=== PATIENT | male | born 1950 | race Caucasian/White ===

== ENCOUNTER 2023-11-18 08:29 | Emergency (ER) | payer MEDICARE, OTHER, SELFPAY ==
[2023-11-18 08:33] VITALS: BP 124/65; PULSE 100; RESP 16; TEMP 35.9; O2SAT 95
[2023-11-18 09:20] LABS: Abs Immature Grans 0.05 10^3/uL (0.0-0.06); Absolute Basophil Count 0.06 10^3/uL (0.0-0.2); Absolute Eosinophil Count 0.05 10^3/uL (0.0-0.7); Absolute Lymphocyte Count 0.71 10^3/uL (1.2-3.4); Absolute Monocyte Count 0.86 10^3/uL (0.1-0.8); Absolute Neutrophil Count 6.17 10^3/uL (1.2-6.7); Basophils % 0.8 %; Eosinophils % 0.6 %; HCT 37.7 % (40.0-50.0); HGB 12.7 g/dL (13.5-17.5); Immature Grans % 0.6 %; MCH 32.6 pg (27.0-33.0); MCHC 33.7 % (32.0-36.0); MCV 97 fL (80-95); MPV 9.3 fL (8.0-11.0); Monocytes % 10.9 %; Neutrophils % 78.1 %; Nucleated RBC 0.5 % (0.0-0.3); Platelet Count 152 10^3/uL (130-400); RBC 3.89 10^6/uL (4.36-5.78); RDW 16.6 % (11.8-14.1)
--- NOTE | 2023-11-18 09:20 | ED.GENADUL_ITS ---
Discharge Plan Disposition Patient Disposition: Home Condition: Stable Discharge Details Clinical Impression: Rash Primary Care Provider: Ida Walker ED Provider: Billy Medley Home Meds and New Rx's Prescriptions: New cephalexin 500 mg capsule 500 mg PO BID 7 Days Qty: 14 0RF No Action Eliquis 5 mg tablet 5 mg PO BID Patient Comments: TAKE ONE TABLET BY MOUTH TWICE A DAY metformin 1,000 mg tablet 1,000 mg PO BID Patient Comments: TAKE ONE TABLET BY MOUTH TWICE A DAY rosuvastatin 20 mg tablet 20 mg PO DAILY Patient Comments: TAKE ONE TABLET BY MOUTH EVERY DAY spironolactone 25 mg tablet 12.5 mg PO QAM Patient Comments: TAKE 1/2 TABLET BY MOUTH DAILY WITH FOOD metoprolol succinate 100 mg tablet extended release 24 hr 100 mg PO DAILY Patient Comments: TAKE 1 TABLET BY MOUTH NIGHTLY Discharge Instructions Instructions: Skin Rash ED Additional Instructions: * start antibiotics for your leg rash, * this may not improve your symptoms. this may be a vasculitis and you may benefit from steroids. please follow up with your PCP in 1-2 for re-evaluation of symptoms. if not improving on antbiotics may need to switch to steroids but they will need to closely monitor your blood sugar. HPI General Date/Time Provider Initiated Documentation: 11/18/23 08:47 . Limitations to Documentation: no limitations . Information obtained by: patient . HPI Narrative: 73-year-old gentleman with past medical history of prediabetes, CAD,Presents for evaluation of left lower extremity redness and pain. He reports that symptoms started yesterday afternoon. He is unsure of any bites or wounds. He states that he noticed the redness yesterday and that it has started to worsen. He had chills yesterday but no fever. He reports some pain with touching of the area, but denies any difficulty walking or significant leg swelling. Related Data Home Medications Medication Instructions Recorded Confirmed apixaban 5 mg tablet (Eliquis) 5 mg PO BID 11/18/23 11/18/23 cephalexin 500 mg capsule 500 mg PO BID 7 days #14 caps 11/18/23 metformin 1,000 mg tablet 1,000 mg PO BID 11/18/23 11/18/23 metoprolol succinate 100 mg 100 mg PO DAILY 11/18/23 11/18/23 tablet,extended release 24 hr rosuvastatin 20 mg tablet 20 mg PO DAILY 11/18/23 11/18/23 spironolactone 25 mg tablet 12.5 mg PO QAM 11/18/23 11/18/23 Previous Rx's Medication Instructions Recorded cephalexin 500 mg capsule 500 mg PO BID 7 days #14 caps 11/18/23 Allergies Allergy/AdvReac Type Severity Reaction Status Date / Time penicillin G Allergy Unknown happened Verified 11/18/23 08:50 as a child General Stated Complaint: Cellulitis NANCY: 3 Exam Narrative Exam Narrative: Review of Systems: All systems reviewed & are unremarkable except as noted in HPI and below Well-developed, no acute distress NCAT PERRL, normal conjunctiva RRR Unlabored respiratory effort clear bilaterally Nondistended abdomen nontender Extremities w/o deformity, no cyanosis, no edema Left lower extremity with some patchy bright red erythematous areas on the lower leg, not circumferential not warm to touch, there is some tenderness to touch Neurovascularly intact distally no focal neurologic deficits Appropriate mood and affect Course Vital Signs Vital signs: Vital Signs Temperature 35.9 C L 11/18/23 08:33 Pulse 100 H 11/18/23 08:33 Respiratory Rate 16 11/18/23 08:33 Blood Pressure 124/65 11/18/23 08:33 Pulse Oximetry 95 11/18/23 08:33 Temperature 35.9 C L 11/18/23 08:33 Temperature Source Temporal Artery Scan 11/18/23 08:33 Pulse 100 H 11/18/23 08:33 Respiratory Rate 16 11/18/23 08:33 Respiratory Effort Normal, Non-Labored 11/18/23 08:39 Blood Pressure 124/65 11/18/23 08:33 Blood Pressure Position Sitting 11/18/23 08:33 Pulse Oximetry 95 11/18/23 08:33 Oxygen Delivery Method Room Air 11/18/23 08:33 Oxygen Flow Rate 0 11/18/23 08:33 Pain Level 8 11/18/23 08:42 Comment no meds today except AM meds, no pain meds. 11/18/23 08:42 Lab/Test Results Lab/Test Results: 11/18/23 09:00 Blood Blood Culture - Pending 11/18/23 08:47 Blood Blood Culture - Pending Medical Decision Making Urgent evaluation of the left lower extremity redness. Initial differential includes cellulitis, vasculitis, unlikely DVT. Did have chills yesterday so will evaluate for possible more systemic infectious etiology. He reports a history of prediabetes, is on metformin but no insulin. Heart rate slightly elevated today. No fever. Lab work reviewed. No elevation in white blood cell count. No anemia. Platelet count is normal. ESR slightly elevated at 66 and CRP is slightly elevated at 5.5. Renal function is at baseline. He is hyperglycemic without evidence of DKA. His procalcitonin is negative. This rash is concerning for cellulitis versus vasculitis. Given his poorly controlled diabetes, I am concerned for starting him on high-dose steroids at this time. I will start antibiotics and the patient understands to return to the emergency department if symptoms or not improving or are worsening as we may need to change medications. Medical Records Medical records reviewed: Yes I reviewed the patient's medical records. Lab Data Lab results reviewed: Yes I reviewed the patient's lab results. Quality:SDOH Health Related Social Needs: 2 No Data to Display PFSH All Active Problems (Updated 11/18/23 @ 11:14 by Billy Medley MD) Rash (Acute) Social History Smoking/Tobacco Use Status: Never Smoking risk assessment performed?: Yes Alcohol Intake: current Alcohol Intake frequency: holidays/special occasions only Drug use: Never Substance use type: does not use Housing: house Do you feel safe in your relationship?: Yes Additional Social history: at side
[2023-11-18 09:22] LABS: ESR 66 mm/hr (0-20)
--- NOTE | 2023-11-18 09:30 | RT.EKG_ITS ---
APPROVED REPORT Exam: Resting ECG Reason for Exam: tachy Patient Location: E HR:84 bpm ECG Measurements Heart Rate 84 AXIS HI 137 P 62 QRSd 134 QRS 133 QT 399 T 25 QTc 472 Conclusion AV paced 84
[2023-11-18 09:37] LABS: ALT 30 U/L (16-63); AST 25 U/L (15-37); Albumin 3.7 g/dL (3.4-5.0); Alkaline Phosphatase 88 U/L (46-116); Anion Gap 8.9 mmol/L (3-11); BUN 28 mg/dL (7-18); Bilirubin, Total 1.05 mg/dL (0.2-1.0); C-Reactive Protein 5.52 mg/dL (<or=0.5); CO2 26.1 mmol/L (21.0-32.0); CREATININE 1.6 mg/dL (0.70-1.30); Calcium 8.9 mg/dL (8.5-10.1); Chloride 99 mmol/L (98-107); Glucose 237 mg/dL (74-106); Potassium 4.3 mmol/L (3.5-5.1); Sodium 134 mmol/L (136-145)
[2023-11-18 11:06] LABS: Procalcitonin 0.1 ng/mL
[2023-11-18 11:34] VITALS: BP 145/72; PULSE 88; RESP 18; TEMP 36.8; O2SAT 98
== END 2023-11-18 11:51 | disposition home or self-care (01) ==
PROVIDERS: Emergency Provider Emergency Medicine
DX: R21 Rash and other nonspecific skin eruption (principal); E11.9 Type 2 diabetes mellitus without complications
CPT/HCPCS: 36415; 80053; 84145; 85652; 87040; 93005; 99284; 85025; 86140; 93010